=== PATIENT | male | born 1970 | race Caucasian/White ===

== ENCOUNTER → 2016-09-07 | Day surgery (SDC) | payer BC, OTHER ==
[~2016-09-07] MED LIST: Chloroprocaine 2%* 20 ML VIAL ONE; Dexamethasone IV* 4 MG/ML 1 ML (4 MG) ONE; Lidocaine 2% PF * 5 ML VIAL ONE; Midazolam* 1 MG/ML 2 ML VIAL (2 MG) ONE; Midazolam* 1 MG/ML 5 ML VIAL (5 MG) ONE; Ondansetron INJ* 2 MG/ML VIAL ONE; Propofol* 10 MG/ML 20 ML BTL IV PUSH ONE; cefTRIAXone VIAL(*) 1,000 MG VIAL ONE; fentaNYL* 50 MCG/ML 2 ML VIAL (100 MCG VIAL) ONE
[2016-09-07 14:02] LABS: Hematocrit 43 % (42-52); Hemoglobin 14.8 g/dl (14.0-18.0); Mean Corpuscular HGB Conc 34 g/dl (31-36); Mean Corpuscular Hemoglobin 30 pg (27-31); Mean Corpuscular Volume 88 fL (80-94); Mean Platelet Volume 8 um3 (7.4-10.4); Red Blood Count 4.91 10^6/ul (4.0-5.4); Red Cell Distribution Width 13 % (10.5-15); White Blood Count 6.6 10^3/ul (3.5-10.8)
--- NOTE | 2016-09-07 14:13 | RAD ---
INDICATION: Right flank pain COMPARISON: CT urogram October 03, 2014 TECHNIQUE: Noncontrast axial source images were acquired from the level hemidiaphragms to the symphysis pubis as part of CT imaging for renal stone. Lung bases: The lung bases are clear. Liver: The liver is normal in size. Noncontrast imaging shows no evidence of a hepatic mass or ductal dilatation. Gallbladder: There are no calcified gallstones. There is no evidence of wall thickening or pericholecystic fluid.. Spleen: The spleen is normal in size. The noncontrast CT appearance is normal. Pancreas: Noncontrast imaging shows no pancreatic mass or ductal dilitation. Adrenal glands: No masses are identified. Kidneys/Bladder: There are several, tiny, nonobstructive lower pole left renal calculi, unchanged. These calculi measure 1 to 2 [address] evidence of hydronephrosis. Noncontrast imaging shows no evidence of a renal mass. There is a large right-sided bladder diverticulum now with increased radiodensity within this diverticulum. This could be related to dependent radiodense debris or to a mass. Recommend urologic referral. Adenopathy: There is no evidence of intraperitoneal or retroperitoneal adenopathy. Evaluation is limited without oral contrast. Fluid collections: There are no free or localized fluid collections. Vessels: The aorta and iliac vessels are normal in caliber. There are no significant atherosclerotic changes. The IVC appears normal Pelvic organs: The prostate is enlarged GI tract: Evaluation of the bowel is limited without oral contrast. The stomach, small bowel, and lower GI tract appear grossly normal. There are no obstructive findings. The appendix is visualized and appears normal. Soft tissues: No soft tissue abnormalities of the extraperitoneal abdomen or pelvis are identified. Osseous structures: There are no acute osseous findings. IMPRESSION: 1. Tiny nonspecific left renal calculi, unchanged. 2. Large right-sided bladder diverticulum now with increased radiodensity representing an indeterminate finding. Suggest urologic referral. 3. BPH.
[2016-09-07 14:14] LABS: ALT 27 U/L (7-52); AST 20 U/L (13-39); Albumin 4.6 g/dL (3.2-5.2); Alkaline Phosphatase 74 U/L (34-104); Anion Gap 8 mmol/L (2-11); BUN/Creatinine Ratio 12.5 (8-20); Blood Urea Nitrogen 11 mg/dL (6-24); C Reactive Protein < 1.00 mg/L (< 5.00); CO2 Carbon Dioxide 26 mmol/L (22-32); Calcium 9.5 mg/dL (8.6-10.3); Chloride 105 mmol/L (101-111); EGFR African American 120.4 (>60); EGFR Non-African American 93.6 (>60); Globulin 2.7 g/dL (2-4); Glucose 97 mg/dL (70-100); Potassium 3.8 mmol/L (3.5-5.0); Sodium 139 mmol/L (133-145); Total Protein 7.3 g/dL (6.4-8.9)
--- NOTE | 2016-09-07 15:19 | ED ---
Ulisses Goss Rebecca, scribed for Jason Heck MD on 09/07/16 at 1335 . Abdominal Pain/Male - HPI Summary HPI Summary: Abraham Clark is a 46 y/o M who presents to ED c/o R flank pain. Pain began suddenly this morning and has been constant since onset. Pain is discrete to the R flank without radiation, is currently ranked 3/10 and characterized as sharp. Sx aggravated and alleviated by nothing. Additionally c/o hematuria ( since yesterday), slight difficulty urinating and a "hard" abdomen prior to urinating this morning. PMHx enlarged prostate and kidney stones. Sees Dr. Murcia for urology. - History of Current Complaint Chief Complaint: EDUrogenitalProblems Stated Complaint: RT SIDE FLANK/KIDNEY PAIN Time Seen by Provider: 09/07/16 13:29 Hx Obtained From: Patient Onset/Duration: Sudden Onset, Still Present Timing: Constant Severity Initially: Mild Severity Currently: Mild Pain Intensity: 3 Pain Scale Used: 0-10 Numeric Location: Flank - Right Radiates: No Character: Sharp Aggravating Factor(s): Nothing Alleviating Factor(s): Nothing Associated Signs And Symptoms: Positive: Urinary Symptoms - Hematuria, difficulty urinating, Other - "hard" abdomen - Allergies/Home Medications Allergies/Adverse Reactions: Allergies Allergy/AdvReac Type Severity Reaction Status Date / Time enviromental Allergy Eyes Uncoded 09/07/16 13:18 Itchy/Swollen/Red/Watery PMH/Surg Hx/FS Hx/Imm Hx Endocrine/Hematology History: Denies: Hx Diabetes Cardiovascular History: Denies: Hx Hypertension History: Reports: Hx Kidney Stones, Other Problems/Disorders - Enlarged prostate Infectious Disease History: No Infectious Disease History: Reports: Traveled Outside the [place] in Last 30 Days - [place], [place] - Social History Occupation: Employed Full-time Lives: With Family Alcohol Use: Rare Hx Tobacco Use: No Smoking Status (MU): Never Smoked Tobacco Review of Systems Positive: Abdominal Pain - R flank, Other - "hard" abdomen prior to urinating Positive: hematuria, other - Slight difficulty urinating All Other Systems Reviewed And Are Negative: Yes Physical Exam Triage Information Reviewed: Yes Vital Signs On Initial Exam: Initial Vitals Temp Pulse Resp BP Pulse Ox 98.6 F 80 18 142/77 99 09/07/16 13:18 09/07/16 13:18 09/07/16 13:18 09/07/16 13:18 09/07/16 13:18 Vital Signs Reviewed: Yes Appearance: Positive: Well-Appearing, No Pain Distress Skin: Positive: Warm, Skin Color Reflects Adequate Perfusion, Dry Head/Face: Positive: Normal Head/Face Inspection Eyes: Positive: Normal ENT: Positive: Normal ENT inspection Neck: Positive: Supple, Nontender Respiratory/Lung Sounds: Positive: Clear to Auscultation, Breath Sounds Present Cardiovascular: Positive: RRR, Pulses are Symmetrical in both Upper and Lower Extremities Abdomen Description: Positive: Nontender, Soft Bowel Sounds: Positive: Present Musculoskeletal: Positive: Normal Neurological: Positive: Normal Psychiatric: Positive: Normal, Affect/Mood Appropriate Diagnostics - Vital Signs Vital Signs Temp Pulse Resp BP Pulse Ox 09/07/16 13:18 98.6 F 80 18 142/77 99 - Laboratory Lab Results: Lab Results 09/07/16 09/07/16 09/07/16 Range/Units 13:35 13:50 13:50 WBC 6.6 (3.5-10.8) 10^3/ul RBC 4.91 (4.0-5.4) 10^6/ul Hgb 14.8 (14.0-18.0) g/dl Hct 43 (42-52) % MCV 88 (80-94) fL MCH 30 (27-31) pg MCHC 34 (31-36) g/dl RDW 13 (10.5-15) % Plt Count 192 (150-450) 10^3/ul MPV 8 (7.4-10.4) um3 Neut % (Auto) 74.7 (38-83) % Lymph % (Auto) 18.9 L (25-47) % [place] % (Auto) 5.4 (1-9) % Eos % (Auto) 0.4 (0-6) % Baso % (Auto) 0.6 (0-2) % Absolute Neuts (auto) 4.9 (1.5-7.7) 10^3/ul Absolute Lymphs (auto) 1.2 (1.0-4.8) 10^3/ul Absolute Monos (auto) 0.4 (0-0.8) 10^3/ul Absolute Eos (auto) 0 (0-0.6) 10^3/ul Absolute Basos (auto) 0 (0-0.2) 10^3/ul Absolute Nucleated RBC 0.01 10^3/ul Nucleated RBC % 0.1 Sodium 139 (133-145) mmol/L Potassium 3.8 (3.5-5.0) mmol/L Chloride 105 (101-111) mmol/L Carbon Dioxide 26 (22-32) mmol/L Anion Gap 8 (2-11) mmol/L BUN 11 (6-24) mg/dL Creatinine 0.88 (0.67-1.17) mg/dL Est GFR ( Amer) 120.4 (>60) Est GFR (Non-Af Amer) 93.6 (>60) BUN/Creatinine Ratio 12.5 (8-20) Glucose 97 (70-100) mg/dL Lactic Acid (0.5-2.0) mmol/L Calcium 9.5 (8.6-10.3) mg/dL Total Bilirubin 0.50 (0.2-1.0) mg/dL AST 20 (13-39) U/L ALT 27 (7-52) U/L Alkaline Phosphatase 74 (34-104) U/L C-Reactive Protein < 1.00 (< 5.00) mg/L Total Protein 7.3 (6.4-8.9) g/dL Albumin 4.6 (3.2-5.2) g/dL Globulin 2.7 (2-4) g/dL Albumin/Globulin Ratio 1.7 (1-3) Urine Color Red A Urine Appearance Turbid Urine pH TNP Ur Specific [place] 1.019 (1.010-1.030) Urine Protein TNP Urine Ketones TNP Urine Blood TNP Urine Nitrate TNP Urine Bilirubin TNP Urine Urobilinogen TNP Ur Leukocyte Esterase TNP Urine WBC (Auto) Trace(0-5/hpf) (Absent) Urine RBC (Auto) 3+(>10/hpf) H (Absent) Urinalysis Comment Urine Glucose TNP Urine Ascorbic Acid TNP 09/07/16 Range/Units 13:50 WBC (3.5-10.8) 10^3/ul RBC (4.0-5.4) 10^6/ul Hgb (14.0-18.0) g/dl Hct (42-52) % MCV (80-94) fL MCH (27-31) pg MCHC (31-36) g/dl RDW (10.5-15) % Plt Count (150-450) 10^3/ul MPV (7.4-10.4) um3 Neut % (Auto) (38-83) % Lymph % (Auto) (25-47) % [place] % (Auto) (1-9) % Eos % (Auto) (0-6) % Baso % (Auto) (0-2) % Absolute Neuts (auto) (1.5-7.7) 10^3/ul Absolute Lymphs (auto) (1.0-4.8) 10^3/ul Absolute Monos (auto) (0-0.8) 10^3/ul Absolute Eos (auto) (0-0.6) 10^3/ul Absolute Basos (auto) (0-0.2) 10^3/ul Absolute Nucleated RBC 10^3/ul Nucleated RBC % Sodium (133-145) mmol/L Potassium (3.5-5.0) mmol/L Chloride (101-111) mmol/L Carbon Dioxide (22-32) mmol/L Anion Gap (2-11) mmol/L BUN (6-24) mg/dL Creatinine (0.67-1.17) mg/dL Est GFR ( Amer) (>60) Est GFR (Non-Af Amer) (>60) BUN/Creatinine Ratio (8-20) Glucose (70-100) mg/dL Lactic Acid 0.9 (0.5-2.0) mmol/L Calcium (8.6-10.3) mg/dL Total Bilirubin (0.2-1.0) mg/dL AST (13-39) U/L ALT (7-52) U/L Alkaline Phosphatase (34-104) U/L C-Reactive Protein (< 5.00) mg/L Total Protein (6.4-8.9) g/dL Albumin (3.2-5.2) g/dL Globulin (2-4) g/dL Albumin/Globulin Ratio (1-3) Urine Color Urine Appearance Urine pH Ur Specific [place] (1.010-1.030) Urine Protein Urine Ketones Urine Blood Urine Nitrate Urine Bilirubin Urine Urobilinogen Ur Leukocyte Esterase Urine WBC (Auto) (Absent) Urine RBC (Auto) (Absent) Urinalysis Comment Urine Glucose Urine Ascorbic Acid Result Diagrams: 09/07/16 13:50 09/07/16 13:50 Lab Statement: Any lab studies that have been ordered have been reviewed, and results considered in the medical decision making process. - CT CT Abd/Pel CT Interpretation Completed By: Radiologist - 1. Tiny nonspecific left renal calculi, unchanged. 2. Large right-sided bladder diverticulum now with increased radiodensity representing an indeterminate finding. Suggest urologic referral. 3. BPH. Abdominal Pain Fem Course/Dx - Course Assessment/Plan: Abraham Clark is a 46 y/o M with a CC of R flank pain since this morning and hematuria since yesterday. Additionally c/o slight difficulty urinating and a "hard" abdomen prior to urinating. PMHx enlarged prostate and kidney stones. CT Abd/Pel reveals: Unchanged tiny nonspecific left renal calculi , BPH, and a large right-sided bladder diverticulum now with increased radiodensity. Discussed care with Dr. Alaniz who advised a bladder scan be performed post-void which was [address] Alaniz called back after evaluating the CT and felt that he should take the patient to the OR for definitive care. - Diagnoses Provider Diagnoses: Gross hematuria - Provider Notifications Discussed Care Of Patient With: Dr. Alaniz, urologist, who suggests that a bladder scan be done after pt voids to check for residual. Time Discussed With Above Provider: 14:41 Discharge - Discharge Plan Condition: Stable Disposition: ADMITTED TO [facility] Discharge Disposition Comment: He will be signed out to Dr. Cole at 1500, pending dispo Referrals: Kevin Santos MD [Primary Care Provider] - The documentation as recorded by the Ulisses mensah Rebecca accurately reflects the service I personally performed and the decisions made by me, Jason Heck MD.
[2016-09-07 18:17] VITALS: BP 112/65
--- NOTE | 2016-09-08 02:53 | OP ---
CC: Dr. Kevin Santos OPERATIVE REPORT: DATE OF OPERATION: 09/07/16 DATE OF : 72 SURGEON: Raad Alaniz MD. ANESTHESIOLOGIST: Dr. Eduardo Savage. ANESTHESIA: Spinal. PRE-OP DIAGNOSES: 1. Gross hematuria. 2. Clot urinary retention. 3. Bladder diverticulum. POST-OP DIAGNOSES: 1. Gross hematuria. 2. Clot urinary retention. 3. Septated large bladder diverticulum, Rt posterolateral bladder wall. 4. Arterial bleeder from wall of lower right posterior bladder diverticulum. OPERATIVE PROCEDURES: 1. Cystoscopy. 2. Evacuation of clot urinary retention. 3. Fulguration of arterial bleeder from diverticular wall. INDICATION FOR PROCEDURE: Mr. Clark is a 46-year-old white male who has been followed by Dr. Murcia in our office because of a large bladder diverticulum measuring about 8 cm in diameter and because of incomplete bladder emptying. He was worked up for hematuria about [address] urogram and cystoscopy and no significant pathology was noted besides the bladder diverticulum. The patient was doing fine until yesterday when he was skiing in [place]. He then noted total gross painless hematuria. There was no associated flank or abdominal pain and no symptoms to suggest urinary infection. The gross hematuria persisted today and he was passing clots. He drove to [place] and went to the emergency room. A noncontrast CT of the abdomen and pelvis showed normal kidneys, with tiny bilateral nonobstructing renal calculi. There was no hydronephrosis and no renal masses noted. The bladder looked distended and there was an 8 cm diverticulum arising from the right posterolateral bladder wall. The diverticulum was filled with dense material representing either blood clots or possible tumor. Postvoid bladder ultrasound showed residual in excess of 300 cc. Because of the above history and findings, the patient was taken urgently to the operating room for the above procedure. PATHOLOGY: At cystoscopy, there was a coronal hypospadias. There is no meatal stenosis. The rest of the urethra looked normal. The prostatic urethra was short and open. There was a large residual (more than 300 cc) of dark bloody urine, with a few clots. Examination of the bladder showed the bladder to be full with fresh clots. Following the evacuation of the clots, the ostium of the diverticulum was noted in the right posterolateral bladder wall. The ostium was septated and there were 2 adjacent bladder diverticulae. The smaller diverticulum was the upper one, and upon inspection, there were no clots and its wall looked normal, and no lesions or bleeding seen. The lower diverticulum was the larger one and was full of fresh clots. After the clots were evacuated, there was an arterial bleeder from the mucosa of the wall of the diverticulum that was the source of his hematuria. No lesions were seen where the bleeder was located. Following the fulguration of that bleeder, a careful inspection of the bladder wall showed no suspicious lesions and no other bleeders. Careful inspection of the rest of the bladder wall showed normal ureteral orifices, with clear efflux. There was a moderate degree of diffuse bladder trabeculations. There were no suspicious bladder lesions seen. No additional hematuria was noted following the fulguration of the bleeder from the diverticulum. DESCRIPTION OF PROCEDURE: After successful spinal anesthesia, the patient was placed in the lithotomy position and was prepped and draped for cystoscopy. Cystoscopy was then performed. The cystoscope was introduced inside the bladder. The bladder was thoroughly irrigated until all the bladder clots were evacuated. The bladder and each diverticulum were then carefully inspected and the above findings were noted, namely the bleeding arising from the lower diverticulum. The cystoscope was then placed inside the lower diverticulum and a the clots were evacuated. Inspection showed the arterial bleeder. Using the Bugbee electrode, the bleeder was fulgurated and controlled. Careful inspection of the cortez of the bladder diverticulae and of the bladder wall was then performed , showing no additional pathology. After making sure there was no ongoing hematuria, the scope was removed and a size 18-Mongolian Kelly catheter was passed inside the bladder and the balloon inflated with 10 cc of water. Irrigation showed clear returns. The patient tolerated the procedure well and left the operating room in good condition. To decrease the chances that the hematuria recurs from that bleeder, the plan is to keep the Kelly in place for 36 hours. It will be removed in the office as an outpatient. [id number]/CPS #: [id number] MTDD
== END | disposition home or self-care (01) ==
LOC: ED 13:15 → OR 16:54
PROVIDERS: ATTEND Urology
DX: N32.89 Other specified disorders of bladder (principal); R31.0 Gross hematuria; N32.3 Diverticulum of bladder
CPT/HCPCS: 36415; 74176; 80053; 81003; 83605; 85025; 86140; 96374; 99283; J0696; J1100; J2250; J2400; J2405; J2704; J3010

== ENCOUNTER 2019-09-13 05:49 | Day surgery (SDC) | payer OTHER, BC ==
--- NOTE | 2019-09-10 10:44 | HP ---
AMENDED REPORT NOW INCLUDES DESIGNATED COSIGNER - ESIGNED BEFORE ADJUSTMENTS CC: Dr. Kevin Santos * PREOPERATIVE HISTORY AND PHYSICAL: DATE OF ADMISSION/SURGERY: 09/13/19 This patient is scheduled for same-day surgery admission by Dr. Billings on Friday09/13/19. DATE OF PREOPERATIVE HISTORY AND PHYSICAL EXAM: 09/10/19. ATTENDING SURGEON: Dr. Mata Billings * (dictated by Radha El NP). CHIEF COMPLAINT: Left groin hernia. HISTORY OF PRESENT ILLNESS: The patient is a 49-year-old male recently evaluated by Dr. Billings for a left inguinal hernia. The patient noticed a left groin bulge while straining on the toilet. He denies any significant discomfort and the bulge typically reduces. He denies any change in bowel habits otherwise and denies any signs or symptoms to suggest incarceration or strangulation. He does not suffer from chronic constipation. Dr. Billings examined the patient and noted a reducible left inguinal hernia. Dr. Billings discussed the findings with the patient and has recommended robotic repair of the left inguinal hernia with mesh as a same-day surgery procedure under general anesthesia. Dr. Billings described the nature of the surgical procedure, the rationale for the procedure, the relevant risks and benefits, and today, I reviewed the expected postoperative care and recovery. The patient has had a chance to ask questions and stated that he understands the information and is satisfied with the answers given to his questions. He will sign surgical consent on the day of surgery. PAST MEDICAL HISTORY: Benign prostatic hypertrophy, followed by Dr. Murcia. PAST SURGICAL HISTORY: Vasectomy; robotic bladder diverticulectomy in 2017 at [facility]. MEDICATIONS: Flomax 0.4 mg p.o. b.i.d. ALLERGIES: No known drug allergies. FAMILY HISTORY: No known anesthesia complications, bleeding tendencies, or clotting disorders. 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 He is a nonsmoker. He occasionally consumes alcohol. REVIEW OF SYSTEMS: A 14-point review completed and significant for symptoms mentioned in history of present illness, otherwise completely negative. General : No history of deep venous thrombosis or pulmonary embolism. No bleeding tendencies, no history of blood transfusions. He reports with previous anesthesia, he had a slow recovery. PHYSICAL EXAMINATION GENERAL SURVEY: The patient is a 49-year-old male, well developed, well nourished, in no acute distress. VITAL SIGNS: Height 71 inches, weight 179 pounds, body mass index 25. Blood pressure 122/80, pulse 60 and regular, respiratory rate 12, temperature 98.5 tympanic. HEENT: Benign. NECK: Supple. No cervical lymphadenopathy. LUNGS: Breath sounds bilaterally clear and equal. HEART: Regular rate and rhythm. No murmurs or rubs appreciated. ABDOMEN: Active bowel sounds. Soft, nondistended, nontender throughout. No obvious masses, organomegaly, or evidence of ventral hernia. Inguinal exam done by Dr. Billings revealed a reducible left inguinal hernia and normal external genitalia. RECTAL EXAM: Deferred. EXTREMITIES: Warm without edema or skin ulceration. NEUROLOGIC: Alert and oriented x3. Calm and cooperative. SKIN: Warm, dry, and intact. IMPRESSION: Left inguinal hernia. PLAN/RECOMMENDATIONS: Same-day surgery admission to Dr. Billings's service on 09/13/19, for robotic left inguinal hernia repair with mesh. RADHA EL, FLAKER TENDER [id number]/CPS #: [id number] [facility]
[~2019-09-13 05:49] MED LIST changes: +Buffered Lidocaine 1% SYRIN* 1 ML/SYRINGE INTRADERM ONE; -Chloroprocaine 2%* 20 ML VIAL ONE; -Dexamethasone IV* 4 MG/ML 1 ML (4 MG) ONE; -Lidocaine 2% PF * 5 ML VIAL ONE; -Midazolam* 1 MG/ML 2 ML VIAL (2 MG) ONE; -Midazolam* 1 MG/ML 5 ML VIAL (5 MG) ONE; -Ondansetron INJ* 2 MG/ML VIAL ONE; -Propofol* 10 MG/ML 20 ML BTL IV PUSH ONE; -cefTRIAXone VIAL(*) 1,000 MG VIAL ONE; -fentaNYL* 50 MCG/ML 2 ML VIAL (100 MCG VIAL) ONE
[2019-09-13] MEDS ORDERED: Lactated Ringers 1000 ML Bag* 1,000 ML IV SCH (06:00)
[2019-09-13] MEDS ORDERED: Acetaminophen TAB* 325 MG PO ONE (06:00)
[2019-09-13] MEDS ORDERED: Acetaminophen TAB* 325 MG ONE (06:15)
[2019-09-13] MEDS ORDERED: Buffered Lidocaine 1% SYRIN* 1 ML/SYRINGE INTRADERM ONE (06:16)
[2019-09-13] MEDS ORDERED: ceFAZolin 2 GM in NS PREMIX(*) 2 GM/100 ML BAG IVPB ONE (06:16)
[2019-09-13] MEDS ORDERED: Lidocaine 2% PF * 5 ML VIAL ONE (06:53)
[2019-09-13] MEDS ORDERED: Propofol* 10 MG/ML 20 ML BTL ONE (06:53)
[2019-09-13] MEDS ORDERED: fentaNYL* 50 MCG/ML 5 ML VIAL (250 MCG VIAL) ONE (06:53)
[2019-09-13] MEDS ORDERED: Midazolam* 1 MG/ML 2 ML VIAL (2 MG) ONE (06:53)
[2019-09-13] MEDS ORDERED: Rocuronium* 10 MG/ML VIAL ONE (06:53)
[2019-09-13] MEDS ORDERED: PROCHLORPERAZINE INJ 5 MG/ML 2 ML VIAL IV PRN (07:08)
[2019-09-13] MEDS ORDERED: diPHENhydraMINE IV* 50 MG/ML 1 ml VIAL (BENADRYL) IV PRN (07:08)
[2019-09-13] MEDS ORDERED: oxyCODONE TAB* 5 MG TAB PO PRN (07:08)
[2019-09-13] MEDS ORDERED: HYDROmorphone INJ1* 1 MG/ML SYRINGE IV PRN (07:08)
[2019-09-13] MEDS ORDERED: Naloxone* 0.4 MG/ML 1 ML VIAL IV PRN (07:08)
[2019-09-13] MEDS ORDERED: Bupivacaine 0.5%* 50 ML MDV VIAL ONE (07:13)
[2019-09-13] MEDS ORDERED: KETAMINE HCL* 50 MG/ML 10 ML VIAL ONE (07:47)
[2019-09-13] MEDS ORDERED: Dexamethasone IV* 4 MG/ML 1 ML (4 MG) ONE (07:47)
[2019-09-13] MEDS ORDERED: Ondansetron INJ* 2 MG/ML VIAL ONE (07:47)
[2019-09-13] MEDS ORDERED: Ketorolac INJ* 30 MG/ML 1 ML VIAL ONE (07:47)
[2019-09-13] MEDS ORDERED: HYDROmorphone INJ1* 1 MG/ML SYRINGE ONE (08:05)
[2019-09-13] MEDS ORDERED: Glycopyrrolate IV* 0.2 MG/ML 1 ML VIAL ONE (08:28)
[2019-09-13] MEDS ORDERED: Neostigmine Methylsulfate* 3 MG/3 ML SYRINGE ONE (08:28)
[2019-09-13] MEDS ORDERED: oxyCODONE TAB* 5 MG TAB ONE (09:51)
[2019-09-13 10:25] VITALS: BP 125/73
--- NOTE | 2019-09-13 13:41 | OP ---
DATE OF OPERATION: 09/13/19 [facility] DATE OF : 72 SURGEON: Mata Billings MD. BUNCH BREAKER MACHINE OPERATOR: MARIBEL Persaud PRE-OP DIAGNOSIS: Left inguinal hernia. POST-OP DIAGNOSIS: Left inguinal hernia. OPERATIVE PROCEDURE: Repair of left inguinal hernia with mesh. INDICATIONS FOR PROCEDURE: Left inguinal hernia risks included, but not limited to bleeding, infection, injury to intraabdominal contents including the bowel, pelvic nerves and vessels, recurrence of the hernia, others explained to the patient, who seemed to understand and agreed to the procedure and all questions were answered. DESCRIPTION OF PROCEDURE: The patient was taken to the operating room and placed supine. Preoperative antibiotics were given. After the successful induction of general endotracheal anesthesia, the abdomen was prepped and draped in sterile fashion. Trocars were placed in the left upper quadrant, upper midline, and right upper quadrant respectively under direct visualization of the camera using bladeless Optiview trocar initially. Pneumoperitoneum was achieved to 15 mmHg. Camera was placed in the abdomen. The abdomen was scanned. There was no obvious injury from placement of the first trocar. He was placed in the slight Trendelenburg position. The mesh and sutures were passed and the robot was brought in and docked. The peritoneum was taken down and the hernia sac was gently dissected free from the cord. A large cord lipoma was also removed. A direct hernia was noted and the lipoma was in the indirect space. Cord structures were identified and avoided. Mesh was placed over the hemipelvis covering the femoral direct and indirect spaces. This was a ProGrip mesh. The peritoneum was closed with a running 3-0 V-Loc suture. The needle was removed. The abdomen was scanned. No obvious injuries were noted. Pneumoperitoneum was released from the abdomen. The trocars were removed. The skin was closed at each site with Monocryl and glue was applied to the skin. He tolerated the procedure well. [id number]/[facility] #: [id number] [facility]
== END 2019-09-13 10:27 | disposition home or self-care (01) ==
LOC: OR 05:49
PROVIDERS: ATTEND Surgery
DX: K40.90 Unilateral inguinal hernia, without obstruction or gangrene, not specified as recurrent (principal); N40.0 Benign prostatic hyperplasia without lower urinary tract symptoms
CPT/HCPCS: 49650; S2900; A9270-GY; C1781; J0690; J1100; J1170; J1885; J2250; J2405; J2704; J2710; J3010; J3490